=== PATIENT | male | born 2000 | race Caucasian/White ===

== ENCOUNTER 2021-07-03 20:28 | Emergency (ER) | payer BC, SELFPAY ==
[2021-07-03 20:30] VITALS: PULSE 88; RESP 22; TEMP 36.6; O2SAT 98
--- NOTE | 2021-07-03 20:54 | ED.WOUNDLAC ---
HPI - Wound/Laceration General Chief Complaint: Wound/Laceration Stated Complaint: hand laceration Source: patient Mode of arrival: ambulatory Limitations: no limitations History of Present Illness HPI narrative: this is a 21-year-old gentleman that presents with laceration proximally sent 3cm anterior surface of his right hand gaping has no numbness or tingling has good movement in his fingers and up-to-date with his tetanus vaccine. Onset (ago): hour(s) Extremity Location: Right: hand ( 3Cm gaping laceration anterior right hand) Review of Systems Review of Systems: All systems reviewed & are unremarkable except as noted in HPI and below PMFSH Past Medical History Medical History Patient denies medical problems Exam Const: General: no acute distress and alert Orientation/consciousness: patient oriented x3 HENMT: Head: normal to inspection Eyes: Conjunctivae: conjunctivae normal Pupils: Equal, round and reactive pupils present EOM: EOMs intact bilaterally Direct Ophthalmoscopy: no photophobia Neck: Neck: normal visual inspection, no lymphadenopathy and no meningeal signs Chest: Chest palpation & inspection: normal inspection of the chest Resp: Effort & Inspection: normal respiratory effort Cardio: Rate: regular rate Rhythm: regular rhythm GI: GI Palp: Yes Soft to palpation Percussion: Yes normal to percussion Skin: General skin exam: normal color Rashes: no rashes Extrem: General: normal to inspection and no pedal edema Psych: Mental Status: mental status grossly normal Affect: normal affect Course Course Emergency Course: patient tolerated procedure well 1% lidocaine was used to numb the area, and 7 sutures placed. Vital Signs Vital signs: Vital Signs Temperature 36.6 C 07/03/21 20:30 Pulse Rate 88 07/03/21 20:30 Respiratory Rate 22 H 07/03/21 20:30 Pulse Oximetry 98 07/03/21 20:30 Temperature 36.6 C 07/03/21 20:30 Pulse Rate 88 07/03/21 20:30 Respiratory Rate 22 H 07/03/21 20:30 Pulse Oximetry 98 07/03/21 20:30 Procedures Laceration Laceration 1: Date: 07/03/21 Time: 20:56 Site: hand Side (If applicable): right Size (cm): 3 Description: linear Depth: simple, single layer Local Anesthetic: lidocaine 1% Amount of anesthesia used (mL): 8 Pre-repair: wound explored and irrigated ====== Skin Level ====== Skin layer closed with: vicryl Size (cm): 3-0 Number of sutures: 7 Technique: simple, interrupted ====== Subcutaneous Layer ====== ====== Muscle Layer ====== ====== Tendon Layer ====== Critical Care Time Critical Care Time Critical Care Time: No Discharge Plan Discharge Clinical Impression: Laceration Patient Disposition: Home, Self-Care Condition: Stable Instructions: Antibiotic Form, Laceration (ED), Care For Your Stitches (ED) Additional Instructions: Follow-up with primary care physician in 8 days for suture removal. Can use Tylenol or Motrin for pain. Follow-up/Referrals: UNKNOWN,DOCTOR [Primary Care Provider] - Time of Disposition: 20:58
[2021-07-03 21:04] VITALS: PULSE 80; RESP 18; TEMP 36.6; O2SAT 99
== END 2021-07-03 21:05 | disposition home or self-care (01) ==
PROVIDERS: Emergency Provider Emergency Medicine
DX: S61.411A Laceration without foreign body of right hand, initial encounter (principal); W45.8XXA Other foreign body or object entering through skin, initial encounter
CPT/HCPCS: 12002; 99282

== ENCOUNTER 2024-03-12 11:01 | Outpatient (CLI) | payer BC, SELFPAY ==
[2024-03-12 11:41] LABS: Strep Group A RT-PCR NOT DETECTED (Negative)
== END 2024-03-12 11:02 | disposition home or self-care (01) ==
LOC: CHSLAB 11:03
PROVIDERS: PCP Nurse Practitioner Family; Visit Provider Nurse Practitioner Family
DX: J02.9 Acute pharyngitis, unspecified (principal)
CPT/HCPCS: 87651